=== PATIENT | male | born 1990 | race Caucasian/White ===

== ENCOUNTER 2020-02-22 18:07 | Emergency (ER) | payer OTHER ==
[~2020-02-22] VITALS: Ht 190.5 cm; Wt 164.2 kg
[2020-02-22 18:11] VITALS: Ht 190.5 cm; Wt 164.2 kg
[2020-02-22 20:22] VITALS: BP 183/112
== END 2020-02-22 20:22 | disposition home or self-care (01) ==
LOC: ED 18:07
DX: G44.209 Tension-type headache, unspecified, not intractable (principal); R25.2 Cramp and spasm
CPT/HCPCS: J1885